=== PATIENT | male | born 1965 | race Two or more races ===

== ENCOUNTER 2023-12-13 23:38 | Inpatient (IN) | payer MEDICAID ==
[~2023-12-13] VITALS: Ht 165.1 cm; Wt 81.6 kg
[2023-12-14] MEDS ORDERED: Z GUARD REMEDY 4 OZ OINT TP PRN (03:00)
[2023-12-14] MEDS ORDERED: ACETAMINOPHEN 325 MG TABLET PO PRN (03:00)
[2023-12-14] MEDS ORDERED: MAG HYDROX/AL HYDROX/SIMETH 30 ML UDC PO PRN (03:00)
[2023-12-14] MEDS ORDERED: MAGNESIUM HYDROXIDE 30 ML UDC PO PRN (03:00)
[2023-12-14] MEDS ORDERED: ONDANSETRON HCL/PF 4 MG/2 ML VIAL IVP PRN (03:00)
[2023-12-14 04:00] VITALS: BP 150/90; TEMP 98.6; O2SAT 99
[2023-12-14] MEDS: IV NS 0.9% 1,000 ML IV PRN (04:32)
[2023-12-14 07:41] LABS: BASOPHILS % (AUTO) 0.4 % (0.0-2.0); EOSINOPHILS # (AUTO) 0.2 K/uL (0.0-0.7); EOSINOPHILS % (AUTO) 1.4 % (0.0-6.0); HEMATOCRIT 42 % (39-51); HEMOGLOBIN 13.3 g/dL (13.5-17.5); LYMPHOCYTES # (AUTO) 2.2 K/uL (0.8-4.8); LYMPHOCYTES % (AUTO) 18.3 % (20.0-44.0); MEAN CORPUSCULAR HEMOGLOBIN 28 PG (26.0-33.0); MEAN CORPUSCULAR HGB CONC 32 g/dl (31.0-36.0); MEAN CORPUSCULAR VOLUME 89 fL (80-96); MONOCYTES # (AUTO) 0.9 K/uL (0.1-1.30); MONOCYTES % (AUTO) 7.3 % (2.0-12.0); NEUTROPHILS # (AUTO) 8.8 K/uL (1.8-8.9); NEUTROPHILS % (AUTO) 72.6 % (43.0-81.0); PLATELET COUNT (AUTO) 264 K/uL (150-450); RED BLOOD CELL COUNT(AUTO) 4.68 MIL/uL (4.5-6.0); RED CELL DISTRIBUTION WIDTH 14.1 % (11.5-15.0); WHITE BLOOD COUNT (AUTO) 12.2 K/uL (4.3-11.0)
[2023-12-14 08:00] VITALS: BP 156/93; TEMP 98.4; O2SAT 99
[2023-12-14 08:20] LABS: ALANINE AMINOTRANSFERASE 40 U/L (12-78); ALBUMIN 3.2 g/dL (3.4-5.0); ALKALINE PHOSPHATASE 115 U/L (46-116); ASPARTATE AMINOTRANSFERASE 37 U/L (15-37); BILIRUBIN,DIRECT 0.2 mg/dL (0.0-0.2); CALCIUM, SERUM 8.5 mg/dL (8.5-10.1); CARBON DIOXIDE 27 mmol/L (21-32); CHLORIDE 106 mmol/L (98-107); CREATININE 0.7 mg/dL (0.6-1.3); GLUCOSE 87 mg/dL (74-106); MAGNESIUM 1.8 mg/dL (1.8-2.4); PHOSPHORUS 3.3 mg/dL (2.5-4.9); POTASSIUM 3.8 mmol/L (3.5-5.1); SODIUM SERUM 142 mmol/L (136-145); TOTAL PROTEIN, SERUM 7.1 g/dL (6.4-8.2); UREA NITROGEN, BLOOD 11 mg/dL (7-18)
[2023-12-14] MEDS: ASPIRIN 81 MG TAB.CHEW PO SCH (08:56)
[2023-12-14] MEDS: FOLIC ACID 1 MG TABLET PO SCH (08:56)
[2023-12-14] MEDS: THIAMINE HCL 100 MG TABLET PO SCH (08:56)
[2023-12-14] MEDS: MULTIVITAMINS,THERAGRAN 1 UDTAB TABLET PO SCH (08:56)
[2023-12-14] MEDS: PANTOPRAZOLE 40 MG TABLET.DR PO SCH (08:56)
[2023-12-14 09:08] LABS: CHOLESTEROL 109 mg/dL (<200); HDL CHOLESTEROL 50 mg/dL (40-60); LDL 59 mg/dL (0-99); TRIGLYCERIDES 55 mg/dL (30-150)
[2023-12-14 12:00] VITALS: BP 146/94; TEMP 98.6; O2SAT 100
[2023-12-14 16:00] VITALS: BP 146/89; TEMP 98.2; O2SAT 98
[2023-12-14 20:00] VITALS: BP 162/92; TEMP 99.3; O2SAT 100
[2023-12-15] VITALS: BP 159/88; TEMP 98; O2SAT 100
[2023-12-15 04:00] VITALS: BP 157/107; TEMP 98.5; O2SAT 100
[2023-12-15 07:49] LABS: BASOPHILS # (AUTO) 0.1 K/uL (0.0-0.2); BASOPHILS % (AUTO) 0.5 % (0.0-2.0); EOSINOPHILS # (AUTO) 0.2 K/uL (0.0-0.7); EOSINOPHILS % (AUTO) 1.4 % (0.0-6.0); HEMATOCRIT 44 % (39-51); LYMPHOCYTES # (AUTO) 1.9 K/uL (0.8-4.8); MEAN CORPUSCULAR HEMOGLOBIN 29 PG (26.0-33.0); MEAN CORPUSCULAR HGB CONC 32 g/dl (31.0-36.0); MEAN CORPUSCULAR VOLUME 89 fL (80-96); MONOCYTES % (AUTO) 8.8 % (2.0-12.0); NEUTROPHILS # (AUTO) 8.2 K/uL (1.8-8.9); NEUTROPHILS % (AUTO) 72.3 % (43.0-81.0); PLATELET COUNT (AUTO) 230 K/uL (150-450); RED BLOOD CELL COUNT(AUTO) 4.89 MIL/uL (4.5-6.0); RED CELL DISTRIBUTION WIDTH 13.8 % (11.5-15.0); WHITE BLOOD COUNT (AUTO) 11.3 K/uL (4.3-11.0)
[2023-12-15 07:55] LABS: CALCIUM, SERUM 9.2 mg/dL (8.5-10.1); CREATININE 0.8 mg/dL (0.6-1.3); MAGNESIUM 1.6 mg/dL (1.8-2.4); PHOSPHORUS 3.5 mg/dL (2.5-4.9); POTASSIUM 3.9 mmol/L (3.5-5.1)
[2023-12-15 08:00] VITALS: BP 160/109; TEMP 98.8; O2SAT 100
[2023-12-15] MEDS: DILTIAZEM HCL CD 240 MG PO SCH (09:56)
[2023-12-15 12:00] VITALS: BP 160/109; TEMP 98.8; O2SAT 100
[2023-12-15] MEDS: MAGNESIUM OXIDE 400 MG TABLET PO ONE (12:40)
[2023-12-15 16:00] VITALS: BP 126/81; TEMP 98.4; O2SAT 100
[2023-12-16 00:20] VITALS: BP 126/81; TEMP 98.4; O2SAT 100
[2023-12-16 07:30] LABS: BASOPHILS # (AUTO) 0.1 K/uL (0.0-0.2); BASOPHILS % (AUTO) 0.6 % (0.0-2.0); EOSINOPHILS # (AUTO) 0.2 K/uL (0.0-0.7); EOSINOPHILS % (AUTO) 2.5 % (0.0-6.0); HEMATOCRIT 41 % (39-51); HEMOGLOBIN 13.3 g/dL (13.5-17.5); LYMPHOCYTES # (AUTO) 1.6 K/uL (0.8-4.8); LYMPHOCYTES % (AUTO) 17.1 % (20.0-44.0); MEAN CORPUSCULAR HEMOGLOBIN 29 PG (26.0-33.0); MEAN CORPUSCULAR HGB CONC 33 g/dl (31.0-36.0); MEAN CORPUSCULAR VOLUME 89 fL (80-96); MONOCYTES # (AUTO) 0.9 K/uL (0.1-1.30); MONOCYTES % (AUTO) 9.8 % (2.0-12.0); NEUTROPHILS # (AUTO) 6.5 K/uL (1.8-8.9); PLATELET COUNT (AUTO) 237 K/uL (150-450); RED BLOOD CELL COUNT(AUTO) 4.61 MIL/uL (4.5-6.0); RED CELL DISTRIBUTION WIDTH 13.9 % (11.5-15.0); WHITE BLOOD COUNT (AUTO) 9.3 K/uL (4.3-11.0)
[2023-12-16 07:33] LABS: CALCIUM, SERUM 8.9 mg/dL (8.5-10.1); CREATININE 0.7 mg/dL (0.6-1.3)
[2023-12-16 08:00] VITALS: BP 131/82; TEMP 98.2; O2SAT 99
[2023-12-16 08:16] VITALS: BP 131/82
[2023-12-16] MEDS ORDERED: DILT240C88 PO (10:04)
[2023-12-16] MEDS ORDERED: ASPI-1169 PO (10:04)
[2023-12-16] MEDS ORDERED: PANT40TA49 PO (10:04)
[2023-12-16] MEDS ORDERED: Folic Acid PO (10:04)
[2023-12-16] MEDS ORDERED: Thiamine HCL PO (10:04)
[2023-12-16] MEDS ORDERED: MULT-24 PO (10:04)
== END 2023-12-16 14:19 | disposition home or self-care (01) | DRG 48 ==
LOC: TELE1 12-14 01:49 → MEDSG1 12-15 09:57
PROVIDERS: ADMIT Nurse Practitioner Family; ATTEND Nurse Practitioner Acute Care
DX: G90.8 Other disorders of autonomic nervous system (principal); E44.1 Mild protein-calorie malnutrition; F10.10 Alcohol abuse, uncomplicated; Z98.890 Other specified postprocedural states; F19.10 Other psychoactive substance abuse, uncomplicated; E66.3 Overweight; E88.09 Other disorders of plasma-protein metabolism, not elsewhere classified; I25.10 Atherosclerotic heart disease of native coronary artery without angina pectoris; Z68.30 Body mass index [BMI] 30.0-30.9, adult; I10 Essential (primary) hypertension
CPT/HCPCS: 36415; 71045-TC; 80048-TC; 80061-TC; 80076-TC; 83735-TC; 84100-TC; 84443-TC; 84484-TC; 85025-TC; 93307-TC; 93880-TC; 97112-TC; 97116-TC; 97530-TC; A4223; G0378; J7030